=== PATIENT | male | born 1945 | race Caucasian/White ===

== ENCOUNTER → 2019-07-23 | Outpatient (CLI) | payer MEDICARE | END | disposition home or self-care (01) | LOC: LABPAT 12:25 | PROVIDERS: ATTEND Orthopaedic Surgery | DX: Z01.812 Encounter for preprocedural laboratory examination (principal) | CPT/HCPCS: 87070 ==

== ENCOUNTER → 2019-08-19 | Outpatient (CLI) | payer MEDICARE ==
[2019-08-19 14:59] LABS: HCT 46.8 % (39.0-53.0); HGB 15.4 gm/dL (13.0-17.5); MCH 29.9 pg (25.0-35.0); MCHC 32.9 g/dL (31.0-37.0); Mean Platelet Volume 7.9; Platelet Count 240 k/uL (150-450); RBC 5.14 m/uL (4.30-5.90); RDW 13.2 % (11.5-15.5); WBC 7.8 k/uL (3.8-10.6)
[2019-08-19 15:10] LABS: Albumin 4.5 g/dL (3.5-5.0); Calcium 9.8 mg/dL (8.4-10.2); Partial Thromboplastin Time 25.7 sec (22.0-30.0); Potassium 4.3 mmol/L (3.5-5.1); Prothrombin Time 10.4 sec (9.0-12.0); Total Bilirubin 0.5 mg/dL (0.2-1.3); Total Protein 7.6 g/dL (6.3-8.2)
[2019-08-19 15:59] LABS: Appearance,Urine Clear (Clear); Bilirubin,Urine Negative (Negative); Blood,Urine Negative (Negative); Color,Urine Yellow; Glucose,Urine (UA) Negative (Negative); Ketones,Urine Negative (Negative); Leukocyte Esterase,Urine Negative (Negative); Nitrite,Urine Negative (Negative); PH, Urine 5.5 (5.0-8.0); Protein,Urine Negative (Negative); Specific Gravity,Urine 1.013 (1.001-1.035); Urobilinogen,Urine <2.0 mg/dL (<2.0)
== END | disposition home or self-care (01) ==
LOC: LABPAT 12:50
PROVIDERS: ATTEND Orthopaedic Surgery
DX: Z01.818 Encounter for other preprocedural examination (principal); Z01.812 Encounter for preprocedural laboratory examination; M16.12 Unilateral primary osteoarthritis, left hip; Z51.81 Encounter for therapeutic drug level monitoring
CPT/HCPCS: 80053; 81003; 85027; 85610; 85730; 93005

== ENCOUNTER → 2019-08-19 | Outpatient (CLI) | payer MEDICARE ==
--- NOTE | 2019-08-19 14:02 | XR ---
EXAMINATION TYPE: XR chest 2V DATE OF EXAM: 08/19/2019 COMPARISON: NONE TECHNIQUE: PA and lateral views submitted. HISTORY: Preop FINDINGS: The lungs are clear and there is no pneumothorax or pleural effusion. Arthropathy of the shoulders. Upper atrophic and degenerative changes spine. Hyperinflation of the lungs. No overt failure. Subseg mental changes left lung base. IMPRESSION: 1. Left basilar atelectasis favored over early infiltrate..
== END | disposition home or self-care (01) ==
LOC: RADXRMAIN 12:54
PROVIDERS: ATTEND Family Medicine
DX: J98.11 Atelectasis (principal); R91.8 Other nonspecific abnormal finding of lung field
CPT/HCPCS: 71046

== ENCOUNTER 2019-08-27 05:42 | Day surgery (SDC) | payer MEDICARE ==
[2019-08-21 12:36] VITALS: BMI 27.8
[~2019-08-27 05:42] MED LIST: ACETAMINOPHEN TAB 500 MG TAB PO ONE; DEXAMETHASONE SOD PHOSPHATE 10 MG/ML 1 ML VIAL IV ONE; GABAPENTIN 300 MG CAP PO ONE; MELOXICAM 7.5 MG TAB PO ONE; MIDAZOLAM 2 MG/2 ML VIAL IV PRN; ONDANSETRON 4 MG/2 ML VIAL IVP ONE; TRANEXAMIC ACID 1,000 MG in SODIUM CHLORIDE 0.9% 100 ML IVPB ONE; fentaNYL (PF) 50 MCG/ML 2 ML AMP IV PRN
[2019-08-27] MEDS ORDERED: ROPIVACAINE 246.25 MG, EPINEPHrine 0.5 MG, KETOROLAC 30 MG, cloNIDine HCL/PF 80 MCG, WA... MISCELLANE ONE ×5 (06:00)
[2019-08-27] MEDS: LACTATED RINGERS 1,000 ML IV SCH ×3 (06:34→20:17)
[2019-08-27] MEDS ORDERED: PROPOFOL 10 MG/ML 20 ML VIAL IV ONE (06:51)
[2019-08-27] MEDS ORDERED: HEPARIN SODIUM,PORCINE 10,000 UNIT/ML 1 ML VIAL ONE (06:51)
[2019-08-27] MEDS ORDERED: TRANEXAMIC ACID 1,000 MG/10 ML VIAL ONE (06:51)
[2019-08-27] MEDS ORDERED: fentaNYL (PF) 50 MCG/ML 2 ML AMP ONE (06:51)
[2019-08-27] MEDS ORDERED: SODIUM CHLORIDE 0.9% IRRIG 1,000 ML BTL IRRIGATION ONE (06:51)
[2019-08-27] MEDS ORDERED: MIDAZOLAM 2 MG/2 ML VIAL ONE (06:51)
[2019-08-27] MEDS ORDERED: SODIUM CHLORIDE 0.9% 100 ML BAG ONE (06:51)
[2019-08-27] MEDS ORDERED: ceFAZolin 3,000 MG in SODIUM CHLORIDE 0.9% IRRIGATIO 3,000 ML IRRIGATION ONE (06:57)
[2019-08-27] MEDS ORDERED: LACTATED RINGERS 1,000 ML IV ONE (08:30)
--- NOTE | 2019-08-27 08:31 | P.OP ---
Date of Procedure: 08/27/19 Preoperative Diagnosis: Severe osteoarthritis left hip Postoperative Diagnosis: Severe osteoarthritis left hip Procedure(s) Performed: Left total hip arthroplasty with a direct anterior approach Implants: Jacob and nephew Polarstem size 3 standard Jacob [employer] Nephew R3, 3 hole acetabular shell, 54 mm Jacob [employer]hew reflection 6.5 mm cancellus screw, 20 mm 2 Jacob [employer]hew R3, XLPE 20 acetabular liner Jacob [employer] Nephew Oxinium femoral head 36 m, +4 All components were press-fit. The articulation is Oxinium on polyethylene. Anesthesia: spinal Surgeon: Jarod Maya Keg Raiser #1: Jose Juárez Estimated Blood Loss (ml): 200 (65 mL returned with Cell Saver) Pathology: other (Femoral head) Condition: stable Disposition: PACU Indications for Procedure: After failure of conservative treatment we discussed the surgical and nonsurgical treatment options at length. Patient wishes to proceed with a total hip arthroplasty with a direct anterior approach. Complications specific to this procedure were discussed at length, including but not limited to infection, leg length discrepancy, dislocation, and nerve injury. Patient is aware of all these complications and informed consent was obtained Operative Findings: The operative findings are consistent with severe osteoarthritis of the left hip Description of Procedure: Patient was seen and evaluated in the preoperative area, consent was reviewed, and the surgical site was marked with a skin marker. Patient was then brought to the operating room and given prophylactic antibiotics intravenously. 1 g of Tranexamic acid was also given. A spinal anesthetic was administered by the anesthesia department. The patient was then placed on the Ogden table with the bony prominences well-padded. The hip area was then prepped and draped in usual sterile fashion. A universal timeout was then performed, which confirmed the patient's name, surgical site, ALLERGIES, and procedure being performed. Next the incision site was located at 1 cm distal and 1 cm lateral to the anterior superior iliac spine. The skin and subcutaneous tissues were sharply incised. Incision was carefully dissected down to the fascia overlying the tensor fascia guy muscle. This fascia was then incised in line with the incision. Next, using blunt finger dissection, the tensor fascia guy muscle was dissected off its investing fascia. The muscle was then carefully retracted laterally with a cobra retractor over the lateral neck of the femur. Next, the circumflex vessels were identified and cauterized using the AquaMantis device. The anterior hip capsule was then exposed. The capsule was then opened and an inverted T fashion. Cobra retractors were then placed intracapsularly. The proximal femur was then visualized. The femoral neck was then osteotomized appropriate level above the lesser trochanter. Small amount of traction was placed with the Ogden table. A small wedge of bone was then removed from the remaining femoral head. Next, using a corkscrew femoral head was easily removed from the acetabulum. On gross visual inspection, the femoral head had complete loss of articular cartilage in multiple periarticular osteophytes. Attention was then turned to the acetabulum. the acetabulum was exposed and any remaining labrum was excised. Sequential reaming of the acetabulum was performed using fluoroscopic guidance. When the appropriate size was reached, a trial was then placed. The position and fit of the trial was checked with fluoroscopy. The trial was then removed. Then, using fluoroscopic guidance, the final implant was impacted at 20 of anteversion and 40 of abduction, and fully seated in the acetabulum. 2 screws were then placed in the acetabulum. Again fluoroscopy was used to check position of the screws. Next, the liner was then impacted, with a 20 elevated liner located in the anterior superior quadrant. Component locking was confirmed. Attention was then directed to the femur. With the aid of the Ogden table, the femur was externally rotated to approximately 130, extended, and abducted under the opposite leg. A side hook was then placed under the proximal femur, and the side hook elevator was used to elevate the proximal femur. Retractors were then placed. A capsular release was performed, as well as a release of the conjoined tendon, which afforded excellent visualization of the proximal femur. Next, a box osteotome was used to lateralize the proximal femur. A upholstery handler was then used to locate the femoral canal. Sequential broaching was then performed with appropriate size which afforded excellent fixation in the proximal femur. A trial was then placed with appropriate head and neck, and the hip was gently reduced with the aid of the Ogden table. Fluoroscopy was then used to check position of the components, as well as to ensure equal leg lengths. The hip was then gently dislocated and the trials were then removed. Final implants were then impacted and the hip was again reduced. Final fluoroscopic x-rays confirmed that the components were in anatomic position, as well as equal leg lengths. The hip was also taken through range of motion, and found to be stable. The hip was then copiously irrigated with antibiotic solution with pulsatile lavage. The hip was then irrigated with Irrisept solution. The soft tissues were then injected with a ropivacaine solution, which consisted of 246.25 mg of ropivacaine, 0.5 mg of epinephrine, 30 mg of Toradol, 80 g of clonidine, and 48.45 mL of sterile water, for a total of 100 mL of fluid injected. A second dose of 1 g of Tranexamic acid was also given. the fascia was then closed with 2-0 strata fix suture. The subcutaneous tissue was closed with 3-0 Vicryl. The subcuticular tissue was closed with 3-0 strata fix suture. The skin was then closed with Dermabond glue and a sterile silver dressing. The patient was then transferred to the recovery room in stable condition. The dental chairside assistant LU Holland was required due to the complexity of surgery, and the need for skilled surgical instruments inspector for positioning, draping, exposure, retraction, and closure of the wound.
[2019-08-27] MEDS ORDERED: HYDROcodone/APAP 5-325MG 1 EACH TAB PO PRN (08:49)
[2019-08-27] MEDS ORDERED: DIAZEPAM 5 MG TAB PO PRN ×2 (08:49)
[2019-08-27] MEDS ORDERED: HYDROmorphone 0.5 MG/0.5 ML SYRINGE IVP PRN ×3 (08:49)
[2019-08-27] MEDS ORDERED: hydrOXYzine PAMOATE 25 MG CAP PO PRN (08:49)
[2019-08-27] MEDS ORDERED: MAGNESIUM HYDROXIDE 2,400 MG/10 ML CUP PO PRN (08:49)
[2019-08-27] MEDS ORDERED: ACETAMINOPHEN TAB 325 MG TAB PO PRN (08:49)
[2019-08-27] MEDS ORDERED: ONDANSETRON 4 MG/2 ML VIAL IVP PRN (08:49)
[2019-08-27] MEDS ORDERED: NALOXONE 0.4 MG/ML 1 ML VIAL IV PRN (08:49)
--- NOTE | 2019-08-27 09:17 | FL ---
EXAMINATION TYPE: FL guidance operating room DATE OF EXAM: 08/27/2019 HISTORY: Fluoroscopy time 46 seconds of fluoroscopy provided. IMPRESSION: 1. Fluoroscopy time.
--- NOTE | 2019-08-27 09:17 | XR ---
EXAMINATION TYPE: XR Hip Limited LT DATE OF EXAM: 08/27/2019 COMPARISON: NONE HISTORY: Post op TECHNIQUE: One view submitted. FINDINGS: There is postsurgical change in near anatomic alignment. There is soft tissue edema and emphysema. IMPRESSION: 1. Postoperative change. Appears in near-anatomic alignment.
--- NOTE | 2019-08-27 09:18 | XR ---
EXAMINATION TYPE: XR Hip Limited LT DATE OF EXAM: 08/27/2019 COMPARISON: NONE HISTORY: Postoperative TECHNIQUE: One view submitted. FINDINGS: There is postsurgical change in near anatomic alignment. There is soft tissue edema and emphysema. IMPRESSION: 1. Postoperative change. Appears in near-anatomic alignment.
[2019-08-27] MEDS ORDERED: HYDROmorphone 1 MG/ML 1 ML SYRINGE IVP ONE (11:50)
[2019-08-27] MEDS: HYDROcodone/APAP 5-325MG 1 EACH TAB PO PRN (18:40)
[2019-08-27] MEDS ORDERED: MELATONIN 5 MG TABLET PO PRN (20:01)
[2019-08-27] MEDS: ASPIRIN 325 MG TAB PO SCH (20:19)
[2019-08-27] MEDS ORDERED: NON FORMULARY DRUG (Glucosam/Chon-Msm1/C/Mang/Bosw [Glucosamine-Chondroitin Tablet] 1 EACH PO SCH (21:00)
[2019-08-27] MEDS ORDERED: ATORVASTATIN 10 MG TAB PO SCH (21:00)
[2019-08-27] MEDS ORDERED: LORATADINE 10 MG TAB PO SCH (21:00)
[2019-08-27] MEDS ORDERED: SENNOSIDES-DOCUSATE SODIUM 1 EACH TAB PO SCH (21:00)
[2019-08-28] MEDS: LACTATED RINGERS 1,000 ML IV SCH ×2 (00:45→04:42)
[2019-08-28] MEDS: ASPIRIN 325 MG TAB PO SCH (07:34)
[2019-08-28] MEDS: HYDROcodone/APAP 5-325MG 1 EACH TAB PO PRN (07:34)
[2019-08-28 07:51] LABS: Basophils % (A) 0 %; Eosinophils # (A) 0.1 k/uL (0-0.7); Eosinophils % (A) 1 %; HCT 39.2 % (39.0-53.0); HGB 12.8 gm/dL (13.0-17.5); Lymphocytes # (A) 1.6 k/uL (1.0-4.8); Lymphocytes % (A) 14 %; MCH 29.7 pg (25.0-35.0); MCHC 32.7 g/dL (31.0-37.0); MCV 91.1 fL (80.0-100.0); Mean Platelet Volume 7.7; Monocytes # (A) 0.9 k/uL (0-1.0); Monocytes % (A) 8 %; Neutrophils # (A) 8.2 k/uL (1.3-7.7); Neutrophils % (A) 73 %; Platelet Count 238 k/uL (150-450); WBC 11.1 k/uL (3.8-10.6)
[2019-08-28 08:59] VITALS: BP 132/68; PULSE 66; RESP 16; TEMP 98.3
[2019-08-28] MEDS ORDERED: MAGNESIUM OXIDE 400 MG TAB PO SCH (09:00)
[2019-08-28] MEDS ORDERED: NON FORMULARY DRUG (Turmeric Root Extract [Turmeric] 500 MG) PO SCH (09:00)
[2019-08-28] MEDS ORDERED: MULTIVITAMINS, THERA 1 EACH TAB PO SCH (09:00)
[2019-08-28] MEDS ORDERED: NON FORMULARY DRUG (Ubidecarenone [Co Q-10] 400 MG) PO SCH (09:00)
[2019-08-28] MEDS ORDERED: MELOXICAM 7.5 MG TAB PO SCH (09:00)
--- NOTE | 2019-08-28 09:26 | P.DS ---
Providers Expected date of discharge: 08/28/19 Attending physician: Jarod Maya Consults: 08/27/19 08:49 Consult Physician Routine Consulting Provider: Henry Calzada Reason/Comments: Postoperative medical management Do you want consulting provider notified?: Yes Primary care physician: Drake Mitchell [facility] Course: This is a 74-year-old male with known history of degenerative arthritis of the left hip. The patient was evaluated by Dr. Maya in the office. After discussion and consideration patient elects to proceed with total left hip arthroplasty. The patient is seen preoperatively by Dr. Mitchell and cleared for surgery. Patient is admitted to [facility] on 08/27/19 for left total hip arthroplasty. The procedures performed without complication or sequelae. The patient is doing well postoperatively. Labs and vital signs are stable on day of discharge. Patient is examined bedside this morning with Dr. Maya. Patient states the pain in his hip is currently well-controlled. He is ambulating with minimal assistance and a walker. There are no new complaints today. Vital signs stable. On examination, the patient is sitting in the bedside chair in no apparent distress. He is alert and orientated x3. On inspection of the left hip, there is a clean, dry, intact surgical dressing in place. There is minimal erythema. There is no drainage noted at this time. There is minimal soft tissue swelling to the hip and thigh. Patient has full foot and ankle motion without difficulty or pain. Neurovascular status to the left lower extremity is intact. Patient is discharged to home in good condition with home health care, pending medical clearance. Patient Condition at Discharge: Fair Plan - Discharge Summary Discharge Rx Participant: Yes New Discharge Prescriptions: New Aspirin 325 mg PO BID 30 Days #60 tab Hydrocodone/Acetaminophen [Bronson 5-325] 1 - 2 tab PO Q6H PRN #40 tab PRN Reason: Pain Sennosides-Docusate Sodium [Senokot-S] 2 tab PO HS PRN #30 tablet PRN Reason: Constipation No Action Ubidecarenone [Co Q-10] 400 mg PO DAILY Aspirin [Adult Low Dose Aspirin EC] 81 mg PO DAILY Acetaminophen [Tylenol Extra Strength] 1,000 mg PO DIRECTED PRN PRN Reason: Pain Multivitamins, Thera [Multivitamin (formulary)] 1 tab PO DAILY Hydrocodone/Acetaminophen [Bronson 5-325] 1 tab PO DAILY Atorvastatin Calcium [Lipitor] 5 mg PO HS Ascorbic Acid [Vitamin C] 1,000 mg PO DAILY Meloxicam [Mobic] 15 mg PO DAILY Magnesium Oxide 400 mg PO DAILY Turmeric Root Extract [Turmeric] 500 mg PO DAILY Cetirizine HCl [Zyrtec] 10 mg PO HS Glucosam/Harjinder-Msm1/C/Servando/Bosw [Glucosamine-Chondroitin Tablet] 1 each PO BID Melatonin 10 mg PO HS PRN PRN Reason: sleep Pyridoxine [Vitamin B-6] 50 mg PO DAILY Sennosides/Docusate Sodium [Leigh Colace] 1 tab PO TID Discharge Medication List Acetaminophen [Tylenol Extra Strength] 1,000 mg PO DIRECTED PRN 08/21/19 [History] Ascorbic Acid [Vitamin C] 1,000 mg PO DAILY 08/21/19 [History] Aspirin [Adult Low Dose Aspirin EC] 81 mg PO DAILY 08/21/19 [History] Atorvastatin Calcium [Lipitor] 5 mg PO HS 08/21/19 [History] Cetirizine HCl [Zyrtec] 10 mg PO HS 08/21/19 [History] Glucosam/Harjinder-Msm1/C/Servando/Bosw [Glucosamine-Chondroitin Tablet] 1 each PO BID 08/21/19 [History] Hydrocodone/Acetaminophen [Bronson 5-325] 1 tab PO DAILY 08/21/19 [History] Magnesium Oxide 400 mg PO DAILY 08/21/19 [History] Melatonin 10 mg PO HS PRN 08/21/19 [History] Meloxicam [Mobic] 15 mg PO DAILY 08/21/19 [History] Multivitamins, Thera [Multivitamin (formulary)] 1 tab PO DAILY 08/21/19 [History] Pyridoxine [Vitamin B-6] 50 mg PO DAILY 08/21/19 [History] Sennosides/Docusate Sodium [Leigh Colace] 1 tab PO TID 08/21/19 [History] Turmeric Root Extract [Turmeric] 500 mg PO DAILY 08/21/19 [History] Ubidecarenone [Co Q-10] 400 mg PO DAILY 08/21/19 [History] Aspirin 325 mg PO BID 30 Days #60 tab 08/28/19 [Rx] Hydrocodone/Acetaminophen [Bronson 5-325] 1 - 2 tab PO Q6H PRN #40 tab 08/28/19 [Rx] Sennosides-Docusate Sodium [Senokot-S] 2 tab PO HS PRN #30 tablet 08/28/19 [Rx] Follow up Appointment(s)/Referral(s): Drake Mitchell MD [Primary Care Provider] - 1 Week Jarod Maya DO [Doctor of Osteopathic Medicine] - 09/09/19 2:00 pm (Patient may follow-up with Dr. Jarod Maya at [facility] in 2-3 weeks following discharge. ) Activity/Diet/Wound Care/Special Instructions: 1. Weight-bear as tolerated on left lower extremity 2. Keep dressing over the left hip clean, dry, intact 3. Patient is shallow dressing intact 4. If incision site remains clean, dry, intact over the next 72 hours, patient may shower without a dressing at that time 5. Patient to apply ice for comfort and support over the dressing of the incision site at the left hip 6. Take medications as prescribed 7. Do not soak in tub Discharge Disposition: HOME WITH HOME HEALTH SERVICES
== END 2019-08-28 12:35 | disposition home health service (06) ==
LOC: OR 05:42 → EDSTATUS 07:00 → 4SSUR 13:24 → OR 08-28 12:35
PROVIDERS: ATTEND Orthopaedic Surgery
DX: M16.12 Unilateral primary osteoarthritis, left hip (principal); I10 Essential (primary) hypertension; J30.2 Other seasonal allergic rhinitis; H91.90 Unspecified hearing loss, unspecified ear; Z79.1 Long term (current) use of non-steroidal anti-inflammatories (NSAID); Z79.899 Other long term (current) drug therapy; Z88.5 Allergy status to narcotic agent; Z96.651 Presence of right artificial knee joint; Z87.891 Personal history of nicotine dependence; Z79.82 Long term (current) use of aspirin
CPT/HCPCS: 97116; 97161; 97535; 97165; 86891; 86900; 86901; 85025; 86850; 88300; 73501; 27130; P9022; C1776; J0171; J1100; J0690 ×2; J2405; J1885; J1170; J2795; J0735